=== PATIENT | female | born 1995 | race African-American/Black ===

== ENCOUNTER 2018-10-10 18:54 | Emergency (ER) | payer MEDICAID ==
[~2018-10-10] VITALS: Ht 157.5 cm; Wt 52.2 kg
[~2018-10-10 18:54] MED LIST: PRENCAP15
[2018-10-10 19:35] VITALS: BP 117/77
== END 2018-10-10 20:30 | disposition home or self-care (01) ==
LOC: ER 18:54
DX: N39.0 Urinary tract infection, site not specified (principal)
CPT/HCPCS: 81002; 81025

== ENCOUNTER 2019-11-09 16:02 | Emergency (ER) | payer SELFPAY ==
[~2019-11-09] VITALS: Ht 157.5 cm; Wt 54.4 kg
[2019-11-09 16:30] VITALS: BP 113/79
== END 2019-11-09 17:48 | disposition home or self-care (01) ==
LOC: ER 16:06
DX: J02.8 Acute pharyngitis due to other specified organisms (principal); J06.9 Acute upper respiratory infection, unspecified
CPT/HCPCS: 87804